=== PATIENT | male | born 1995 | race Caucasian/White ===

== ENCOUNTER 2022-02-10 18:39 | Emergency (ER) | payer OTHER ==
--- OUTSIDE RECORDS SUMMARY | 2022-02-10 18:41 | XMS REPORT | Continuity of Care Document ---
:1995 Author Organization [facility] t Address [address] [place] [address] Care Team Providers Name Role Phone Norah Silvestre Primary Care Physician BIANKA PACHECO Attending Clinician Unavailable BIANKA PACHECO Attending Clinician Unavailable Rivera Medina MD Attending Clinician FRANCY CARTER Attending Clinician Unavailable Doctor Unassigned, [place] Attending Clinician Unavailable Norah Silvestre Attending Clinician JEREMÍAS AMARAL Attending Clinician Unavailable YVONNE EVANGELISAT Attending Clinician Unavailable ISA REINOSO Attending Clinician Unavailable BIANKA PACHECO Admitting Clinician Unavailable Payers Payer Name Policy Type Policy Number Effective Date Expiration Date [facility] [id number] 2021 CHOICE MEDICAID 00:00:00 Problems Condition Condition Condition Status Onset Resolution Last Treating Co mments Source Name Details Category Date Date Treatment Clinician Date Flatulence Flatulence Disease Active U nivers , , 5-19 ity of [place] and gas , and gas 00 Medi justin pain pain Branch Bilious Bilious Disease Active Univers vomiting vomiting 5-19 ity of with with 00:00: [place] nausea nausea 00 Medical Branch Blood in Blood in Disease Active Unive rs stool stool 5-19 ity of 00:00: 00 Medical Branch Hematemesi Hematemesi Disease Active U nivers s with s with 5-19 ity of nausea nausea 00:00: [place] 00 Medical Branch Acute Acute Disease Active Univers intractabl intractabl 3-30 it y of e e 00:00: [place] tension-ty tension-ty 00 Me dical pe pe Branch headache headache Essential Essential Disease Active Uni vers hypertensi hypertensi 3-30 it y of on on 00:00: 00 Medical Branch Encounter Encounter Disease Active Uni vers to to 3-30 ity of establish establish 00:00: [facility] care 00 Medical Branch Diarrhea, Diarrhea, Disease Active Uni vers unspecifie unspecifie 3-30 it y of d type d type 00:00: [place] 00 Medical Branch Gastroesop Gastroesop Disease Active U nivers hageal hageal 3-30 ity of reflux reflux 00:00: [place] disease disease 00 Medical without without Branch esophagiti esophagiti s s Need for Need for Disease Active Unive rs hepatitis hepatitis 3-30 ity of C C 00:00: [place] screening screening 00 Medi justin test test Branch Subcutaneo Subcutaneo Disease Active U nivers us nodule us nodule 3-30 ity of of back of back 00:00: [place] 00 Medical Branch Nausea Nausea Disease Active Univers 3-30 ity of 00:00: [place] 00 Medical Branch Allergies, Adverse Reactions, Alerts Allergy Allergy Status Severity Reaction(s) Onset Inactive Treating Comm ents Source Name Type Date Date Clinician Penicill Propensi Active Hives Univer s in ty to 5-19 ity of adverse 00:00: [place] reaction 00 Medical s Branch PENICILL DRUG Active Hives Univers IN INGREDI 5-19 ity of 00:00: [place] 00 Medical Branch Amoxicil Propensi Active Rash Univer s [place] ty to 3-30 ity of adverse 00:00: [place] reaction 00 Medical s to Branch drug AMOXICIL DRUG Active Med Diarrhea Univer s [place] INGREDI 3-30 ity of 00:00: [place] 00 Medical Branch Social History Social Habit Start Date Stop Date Quantity Comments Source Exposure to 2021-10-05 2021-10-15 [facility] 09:32:00 [facility] (event) [place] Tobacco use and 2021-10-15 2021-10-15 Smokeless tobacco Un iversity of exposure 00:00:00 00:00:00 non-user [facility] Sex Ass[birth year] At [birth year] Universit y of 00:00:00 00:00:00 [facility] Smoking Status Start Date Stop Date Source Unknown [facility] Never smoked tobacco [facility] Medications Ordered Filled Start Stop Current Ordering Indication Dosage Frequency Signature Comments Components Source Medication Medication Date Date Medication? Clinician (SIG) Name Name PANTOPRAZOL 2021-05 Yes [id number] TAKE 1 Univers E 40 mg EC 0-03 TABLET BY ity of tablet 00:00: [facility] DAILY Medical Branch LISINOPRIL 2021-05 Yes [id number] TAKE 1 U nivers 10 mg 0-03 TABLET BY ity of tablet 00:00: [facility] DAILY Medical Branch PANTOPRAZOL Yes [id number] TAKE 1 Univers E 40 mg EC 6-27 TABLET BY ity of tablet 00:00: [facility] DAILY Medical Branch LISINOPRIL Yes [id number] TAKE 1 U nivers 10 mg 6-27 TABLET BY ity of tablet 00:00: [facility] DAILY Medical Branch PANTOPRAZOL 0 Yes [id number] TAKE 1 Univers E 40 mg EC 6-27 TABLET BY ity of tablet 00:00: [facility] DAILY Medical Branch LISINOPRIL 0 Yes [id number] TAKE 1 U nivers 10 mg 6-27 TABLET BY ity of tablet 00:00: [facility] DAILY Medical Branch PANTOPRAZOL 0 2021- No [id number] TAKE 1 Univers E 40 mg EC 6-27 10-03 TABLET BY ity of tablet 00:00: 00:00 [facility] 00 : DAILY Medical Branch LISINOPRIL 2021-0 2021- No [id number] TAKE 1 Univers 10 mg 6-27 10-03 TABLET BY ity of tablet 00:00: 00:00 [facility] 00 :00 DAILY Medical Branch ONDANSETRON 2022-0 Yes [id number] TAKE 1 Univers 4 mg tablet 6-03 TABLET BY ity of 00:00: MOUTH [place] 00 EVERY 8 Medical HOURS FOR Branch UP TO 10 DAYS NEEDED FOR NAUSEA OR VOMITING ONDANSETRON 2021-0 Yes [id number] TAKE 1 Univers 4 mg tablet 6-03 TABLET BY ity of 00:00: MOUTH [place] 00 EVERY 8 Medical HOURS FOR Branch UP TO 10 DAYS NEEDED FOR NAUSEA OR VOMITING ONDANSETRON 2021-0 Yes [id number] TAKE 1 Univers 4 mg tablet 6-03 TABLET BY ity of 00:00: MOUTH [place] 00 EVERY 8 Medical HOURS FOR Branch UP TO 10 DAYS NEEDED FOR NAUSEA OR VOMITING ONDANSETRON 2021-0 Yes [id number] TAKE 1 Univers 4 mg tablet 6-03 TABLET BY ity of 00:00: MOUTH [place] 00 EVERY 8 Medical HOURS FOR Branch UP TO 10 DAYS NEEDED FOR NAUSEA OR VOMITING ONDANSETRON 2021-0 Yes [id number] TAKE 1 Univers 4 mg tablet 6-03 TABLET BY ity of 00:00: MOUTH [place] 00 EVERY 8 Medical HOURS FOR Branch UP TO 10 DAYS NEEDED FOR NAUSEA OR VOMITING IBUPROFEN 2021-0 Yes [id number] TAKE 1 U nivers 600 mg 5-16 TABLET BY ity of tablet 00:00: MOUTH [place] 00 EVERY 6 Medical HOURS Branch NEEDED FOR TEMPERATUR E GREATER THAN 38.5 CELCIUS FOR UP TO 14 DAYS IBUPROFEN 2021-0 Yes [id number] TAKE 1 U nivers 600 mg 5-16 TABLET BY ity of tablet 00:00: MOUTH [place] 00 EVERY 6 Medical HOURS Branch NEEDED FOR TEMPERATUR E GREATER THAN 38.5 CELCIUS FOR UP TO 14 DAYS IBUPROFEN 2021-0 Yes [id number] TAKE 1 U nivers 600 mg 5-16 TABLET BY ity of tablet 00:00: MOUTH [place] 00 EVERY 6 Medical HOURS Branch NEEDED FOR TEMPERATUR E GREATER THAN 38.5 CELCIUS FOR UP TO 14 DAYS IBUPROFEN 2021-0 Yes [id number] TAKE 1 U nivers 600 mg 5-16 TABLET BY ity of tablet 00:00: MOUTH [place] 00 EVERY 6 Medical HOURS Branch NEEDED FOR TEMPERATUR E GREATER THAN 38.5 CELCIUS FOR UP TO 14 DAYS IBUPROFEN 2021-0 Yes [id number] TAKE 1 U nivers 600 mg 5-16 TABLET BY ity of tablet 00:00: MOUTH [place] 00 EVERY 6 Medical HOURS Branch NEEDED FOR TEMPERATUR E GREATER THAN 38.5 CELCIUS FOR UP TO 14 DAYS IBUPROFEN 2021-0 Yes [id number] TAKE 1 U nivers 600 mg 5-16 TABLET BY ity of tablet 00:00: MOUTH [place] 00 EVERY 6 Medical HOURS Branch NEEDED FOR TEMPERATUR E GREATER THAN 38.5 CELCIUS FOR UP TO 14 DAYS IBUPROFEN 2021-0 Yes [id number] TAKE 1 U nivers 600 mg 5-16 TABLET BY ity of tablet 00:00: MOUTH [place] 00 EVERY 6 Medical HOURS Branch NEEDED FOR TEMPERATUR E GREATER THAN 38.5 CELCIUS FOR UP TO 14 DAYS ONDANSETRON 0 Yes [id number] TAKE 1 Univers 4 mg tablet 5-04 TABLET BY ity of 00:00: MOUTH [place] 00 EVERY 8 Medical HOURS FOR Branch UP TO 10 DAYS NEEDED FOR NAUSEA OR VOMITING ONDANSETRON 0 Yes [id number] TAKE 1 Univers 4 mg tablet 5-04 TABLET BY ity of 00:00: MOUTH [place] 00 EVERY 8 Medical HOURS FOR Branch UP TO 10 DAYS NEEDED FOR NAUSEA OR VOMITING ONDANSETRON 0 2021- No [id number] TAKE 1 Univers 4 mg tablet 5-04 06-03 TABLET BY it y of 00:00: 00:00 MOUTH [place] 00 :00 EVERY 8 Medical HOURS FOR Branch UP TO 10 DAYS NEEDED FOR NAUSEA OR VOMITING pantoprazol 2021-2021- No [id number] 40mg Take 1 Univers e 40 mg EC 07-28- tablet by ity of tablet 00:00: 04:59 mouth [place] 00 :00 daily for Medical 90 days. Branch lisinopriL 2021- No [id number] 10mg Take 1 Univers 10 mg 3-28 10-29 tablet by ity of tablet 00:00: 04:59 mouth [place] 00 :00 daily for Medical 90 days. Branch pantoprazol 2021-2021- No [id number] 40mg Take 1 Univers e 40 mg EC 3-28 10- tablet by ity of tablet 00:00: 04:59 mouth [place] 00 :00 daily for Medical 90 days. Branch lisinopriL 2021-2021- No [id number] 10mg Take 1 Univers 10 mg 3-30 -29 tablet by ity of tablet 00:00: 04:59 mouth [place] 00 :00 daily for Medical 90 days. Branch pantoprazol 2021- No [id number] 40mg Take 1 Univers e 40 mg EC 07-28 tablet by ity of tablet 00:00: 04:59 mouth [place] 00 :00 daily for Medical 90 days. Branch lisinopriL 2021- No [id number] 10mg Take 1 Univers 10 mg 07-28 tablet by ity of tablet 00:00: 04:59 mouth [place] 00 :00 daily for Medical 90 days. Branch pantoprazol 2021- No [id number] 40mg Take 1 Univers e 40 mg EC 07-28 tablet by ity of tablet 00:00: 04:59 mouth [place] 00 :00 daily for Medical 90 days. Branch lisinopriL 2021- No [id number] 10mg Take 1 Univers 10 mg 07-28 tablet by ity of tablet 00:00: 04:59 mouth [place] 00 :00 daily for Medical 90 days. Branch pantoprazol 2021- No [id number] 40mg Take 1 Univers e 40 mg EC 07-28 tablet by ity of tablet 00:00: 00:00 mouth [place] 00 :00 daily for Medical 90 days. Branch lisinopriL 2021- No [id number] 10mg Take 1 Univers 10 mg 07-28 tablet by ity of tablet 00:00: 00:00 mouth [place] 00 :00 daily for Medical 90 days. Branch Vital Signs Vital Name Observation Time Observation Value Comments Source BMI 2021-09-16 15:24:00 25.64 kg/m2 [facility] Oxygen saturation in 2021-09-16 15:24:00 97 /min [facility] Arterial blood by [facility] [place] Pulse oximetry Branch Systolic blood 2021-09-16 15:24:00 139 mm[Hg] Univer sity of pressure [facility] Diastolic blood 2021-09-16 15:24:00 82 mm[Hg] [facility] Heart rate 2021-09-16 15:24:00 102 /min [facility] Body temperature 2021-09-16 15:24:00 36.39 Tiera [facility] Respiratory rate 2021-09-16 15:24:00 20 /min [facility] Body height 2021-09-16 15:24:00 170.2 cm [facility] Body weight 2021-09-16 15:24:00 74.254 kg [facility] Procedures Procedure Date / Time Performed Performing Clinician Sourc e EXTERNAL PROVIDER 2021-11-12 05:01:00 Doctor Zenon, No [facility] RECORDS Name [facility] Encounters Start End Encounter Admission Attending Care Care Encounter Source Date/Time Date/Time Type Type Clinicians Facility Department ID 2021-09-30 Outpatient R BIANKA PACHECO [facility] [id number] Univers 12:05:01 BIANKA PACHECO i [facility] 2022-01-31 2022-01-31 RefAMMON Ovalle [id number] Univers 00:00:00 00:00:00 Rivera PEDIATRIC [id number] [id number] [id number] [facility] PRIMARY [facility] CARE [facility]INIC 2021-11-30 2021-11-30 Outpatient FRANCY MUNOZ [facility] [id number] Univers 10:00:00 10:00:00 [id number] ity of [facility] 2021-11-30 2021-11-30 Outpatient FRANCY MUNOZ [facility] [id number] Univers 10:00:00 10:00:00 ity of [facility] 2021-11-12 2021-11-12 Orders Doctor MOSS [id number] [id number] Univers 00:00:00 00:00:00 Only Unassigned, JORDI [id number] ity of [place] [facility] [id number] Manuel as [id number] [place] [address] Branch 2021-10-23 2021-10-23 RefAMMON Oconnor [id number] [id number] Univers 00:00:00 00:00:00 Norah PEDIATRIC [id number] [id number] [id number] [address] 2021-10-19 2021-10-19 AMMON Daugherty 1.2.840.114 [id number] Univers 00:00:00 00:00:00 Norah PEDIATRIC [id number] [id number] [id number] [address] 2021-10-16 2021-10-16 Outpatient R [facility] [id number] Univers 11:45:00 11:45:00 ity of [facility] 2021-09-30 2021-09-30 AMMON Daugherty [id number] [id number] Univers 00:00:00 00:00:00 Norah PEDIATRIC [id number] [id number] [id number] [address] 2021-09-24 2021-09-24 AMMON Daugherty 1.2.840.114 [id number] Univers 00:00:00 00:00:00 Norah PEDIATRIC [id number] [id number] [id number] [address] 2021 2021 Outpatient R [facility] [id number] Univers 08:45:00 08:45:00 ity [facility] 2021-09-16 2021-09-16 Office Raquel WVDEREJE 1.2.840.114 [id number] Univers 10:00:00 11:36:37 Visit Uribe MARCUS [id number] it[id number] [id number] Ok emily RAYMUNDO [address] [place] [address] 2021-09-16 2021-09-16 Outpatient R BIANKA PACHECO [facility] [id number] Univers 10:00:00 11:36:37 [facility]-04[facility]19 2021-04-20 Emergency E IHEME, JEREMÍAS MHBL MHBL [id number] MHBL 23:01:00 05:18:00 2020-06-02 2020-06-02 Emergency E TONJA, MHBL MED [id number] MHBL 08:54:00 12:30:00 [facility] 2020-01-24 2020-01-25 Emergency E ISA REINOSO MHBL MHBL [id number] MHBL 21:20:00 01:02:00 2019-04-12 2019-04-12 Emergency E MHBL MHBL [id number] MHBL 09:48:00 09:48:00 2019-02-28 2019-02-28 Emergency E MHBL MHBL [id number] MHBL 18:02:00 18:02:00 Results This patient has no known results.
[2022-02-10] MEDS ORDERED: dexAMETHasone 10 MG/ML VIAL ONE (19:58)
[2022-02-10] MEDS ORDERED: KETOROLAC 30 MG/ML INJ ONE (19:59)
--- NOTE | 2022-02-10 20:25 | RAD REPORT ---
EXAM DESCRIPTION: CT - Soft Tissue Neck W/Contr CLINICAL HISTORY: difficulty swallowing Neck pain, dysphagia COMPARISON: No comparisons TECHNIQUE All CT scans are performed using dose optimization technique as appropriate and may includ e automated exposure control or mA/KV adjustment according to patient size. FINDINGS: Nasopharyngeal tissues are normal in appearance. Fossa Rosenmller are normal. Parapharyngeal fat triangles are symmetric. Tongue base structures are normal. Epiglottis and aryepiglottic folds are normal. Piriform sinuses are well aerated. The vocal cords are normal in appearance. Salivary glands are normal in appearance. Upper lung nelson are clear. Included intracranial contents are unremarkable. IMPRESSION: No acute abnormality is detected.
--- NOTE | 2022-02-10 21:56 | ER ---
Nurse's Notes [facility] [place] [facility] Name: Silvio Langley Age: 26 yrs Sex: Male : 1995 Arrival Date: 02/10/2022 Time: 18:57 Bed 12 Private MD: Diagnosis: Acute pharyngitis, unspecified Presentation: 02/10 19:21 Chief complaint: Patient states: Doesn't want to speak; speaking for patient jh5 states he coughed up flesh and now throat hurts and thinks he had a cyst or abscess. Coronavirus screen: Vaccine status: Patient reports being unvaccinated. Client denies travel out of the [place] in the last 14 days. Ebola Screen: Patient negative for fever greater than or equal to 101.5 degrees Fahrenheit, and additional compatible Ebola Virus Disease symptoms Patient denies exposure to infectious person. Patient denies travel to an Ebola-affected area in the 21 days before illness onset. Initial Sepsis Screen: Does the patient meet any 2 criteria? No. Patient's initial sepsis screen is negative. Does the patient have a suspected source of infection? No. Patient's initial sepsis screen is negative. Risk Assessment: Do you want to hurt yourself or someone else? Patient reports no desire to harm self or others. Onset of symptoms was January 2022. 19:21 Method Of Arrival: Ambulatory [facility] 19:21 Acuity: SHEREE 4 jh5 Triage Assessment: 19:25 General: Appears in no apparent distress. uncomfortable, Behavior is calm, cooperative, [facility] appropriate for age. Pain: Complains of pain in throat. Cardiovascular: No deficits noted. Historical: - Allergies: 19:25 No Known Allergies; [facility] - Home Meds: 19:25 None [Active]; [facility] - PMHx: 19:25 None; [facility] - Immunization history:: Adult Immunizations up to date. - Social history:: Smoking status: Patient reports the use of cigarette tobacco products, smokes two packs cigarettes per day. Screenin:55 Abuse screen: Denies threats or abuse. Nutritional screening: No deficits noted. em6 Tuberculosis screening: No symptoms or risk factors identified. Fall Risk IV access (20 points). Total Silva Fall Scale indicates No Risk (0-24 pts). Assessment: 19:55 General: Appears uncomfortable, Behavior is cooperative. Pain: Complains of pain in em6 throat Pain does not radiate. Pain began 2-3 days ago. Neuro: Level of Consciousness is awake, alert, obeys commands, Oriented to person, place, time, situation. Cardiovascular: Patient's skin is warm and dry. Respiratory: Airway is patent Respiratory effort is even, unlabored, Respiratory pattern is regular, symmetrical. GI: No signs and/or symptoms were reported involving the gastrointestinal system. : No signs and/or symptoms were reported regarding the genitourinary system. EENT: red oral mucosa noted and swollen lymph nodes . Derm: No signs and/or symptoms reported regarding the dermatologic system. Musculoskeletal: Circulation, motion, and sensation intact. Range of motion: intact in all extremities. 20:55 Reassessment: No changes from previously documented assessment. Patient and/or family em6 updated on plan of care and expected duration. Pain level reassessed. Patient is alert, oriented x 3, equal unlabored respirations, skin warm/dry/pink. 21:58 Reassessment: No changes from previously documented assessment. Patient and/or family em6 updated on plan of care and expected duration. Pain level reassessed. Patient is alert, oriented x 3, equal unlabored respirations, skin warm/dry/pink. Vital Signs: 19:21 Resp 20; Temp 98.8; Pulse Ox 100% ; Weight 65.77 kg; Height 5 ft. 7 in. (170.18 cm); 5 Pain 8/10; 19:27 BP 120 / 83; Pulse 103; Resp 18; Temp 98.6; Pulse Ox 100% ; 5 21:48 BP 121 / 60; Pulse 91; Resp 18; Pulse Ox 100% on R/A; em6 19:21 Body Mass Index 22.71 (65.77 kg, 170.18 cm) 5 ED Course: 18:57 Patient arrived in ED. mr 19:07 Chris Estrada PA is PHCP. m 19:07 Maurice Scott MD is Attending Physician. [facility] 19:25 Triage completed. 5 19:27 Arm band placed on right wrist. 5 19:40 Leticia Greene, RN is Primary Nurse. em6 19:55 Inserted saline lock: 20 gauge in left antecubital area, using aseptic technique. Blood em6 collected. 20:29 SARS-COV-2 RT PCR (Document "Date of Onset" if Symptomatic) Sent. em6 20:29 Strep Sent. em6 20:29 Influenza Screen (a \\T\\ B) Sent. em6 20:33 Bed in low position. Call light in reach. Pulse ox on. NIBP on. em6 20:33 Patient maintains SpO2 saturation greater than 95% on room air. em6 21:55 Marguerite Rouse MD is Referral Physician. jmm 21:55 Filippo Granados MD is Referral Physician. jmm 21:55 Rayray Chen MD is Referral Physician. [facility] 22:38 No provider procedures requiring assistance completed. IV discontinued, intact, em6 bleeding controlled, No redness/swelling at site. Pressure dressing applied. Administered Medications: 19:55 Drug: Decadron - Dexamethasone 10 mg Route: IVP; Site: left antecubital; em6 20:55 Follow up: Response: No adverse reaction em6 19:58 Drug: Ketorolac 30 mg Route: IVP; Site: left antecubital; em6 20:55 Follow up: Response: No adverse reaction em6 Medication: 22:38 VIS not applicable for this client. em6 Outcome: 21:55 Discharge ordered by MD. [facility] 22:38 Discharged to home ambulatory. em6 22:38 Condition: stable 22:38 Discharge instructions given to patient, Instructed on discharge instructions, follow up and referral plans. medication usage, Demonstrated understanding of instructions, follow-up care, medications, Prescriptions given X 1. 22:39 Patient left the ED. em6 Signatures: Chris Estrada PA PA jmm Rivera, Mary mr Rees, Jessica RN RN jh5 Leticia Greene RN RN em6 Corrections: (The following items were deleted from the chart) 21:42 21:42 Response: No adverse reaction em6 em6 21:58 21:48 BP 125 / 80; Pulse 99bpm; Resp 18bpm; Pulse Ox 100% RA; em6 em6
--- NOTE | 2022-02-10 21:56 | EDPHYS ---
Physician Documentation [facility] Name: Silvio Langley Age: 26 yrs Sex: Male : 1995 Arrival Date: 02/10/2022 Time: 18:57 Bed 12 Private MD: ED Physician Maurice Scott HPI: 02/10 20:25 This 26 yrs old Male presents to ER via Ambulatory with complaints of Cough, Sore jmm Throat. 20:25 Onset: The symptoms/episode began/occurred gradually, 3 day(s) ago. Associated signs jmm and symptoms: Pertinent positives: sore throat. Modifying factors: The patient symptoms are alleviated by nothing, the patient symptoms are aggravated by nothing. The patient or guardian reports cough. And admits to productive cough and is concerned that he may have a mass in his throat. Historical: - Allergies: 19:25 No Known Allergies; [facility] - Home Meds: 19:25 None [Active]; [facility] - PMHx: 19:25 None; [facility] - Immunization history:: Adult Immunizations up to date. - Social history:: Smoking status: Patient reports the use of cigarette tobacco products, smokes two packs cigarettes per day. ROS: 20:25 Constitutional: Positive for body aches, fever. jmm 20:25 ENT: Positive for sore throat. 20:25 Respiratory: Positive for cough. 20:25 All other systems are negative. Exam: 20:25 Constitutional: This is a well developed, well nourished patient who is awake, alert, jmm and in no acute distress. Head/Face: atraumatic. Eyes: EOMI, no conjunctival erythema appreciated 20:25 Neck: Trachea midline, Supple Chest/axilla: Normal chest wall appearance and motion. Cardiovascular: Regular rate and rhythm. No edema appreciated Respiratory: Normal respirations, no respiratory distress appreciated Abdomen/GI: Non distended Back: Normal ROM Skin: General appearance color normal MS/ Extremity: Moves all extremities, no obvious deformities appreciated, no edema noted to the lower extremities Neuro: Awake and alert Psych: Behavior is normal, Mood is normal, Patient is cooperative and pleasant 20:25 ENT: Posterior pharynx: Uvula: normal, erythema, that is moderate. Vital Signs: 19:21 Resp 20; Temp 98.8; Pulse Ox 100% ; Weight 65.77 kg; Height 5 ft. 7 in. (170.18 cm); [facility] Pain 8/10; 19:27 BP 120 / 83; Pulse 103; Resp 18; Temp 98.6; Pulse Ox 100% ; 5 21:48 BP 121 / 60; Pulse 91; Resp 18; Pulse Ox 100% on R/A; em6 19:21 Body Mass Index 22.71 (65.77 kg, 170.18 cm) [facility] MDM: 19:34 Patient medically screened. [facility] 21:08 Data reviewed: vital signs, nurses notes. Counseling: I had a detailed discussion with dung the patient and/or guardian regarding: the historical points, exam findings, and any diagnostic results supporting the discharge/admit diagnosis, radiology results, to return to the emergency department if symptoms worsen or persist or if there are any questions or concerns that arise at home. 02/10 19:30 Order name: Influenza Screen (a \\T\\ B) [facility] 02/10 19:30 Order name: Strep [facility] 02/10 19:29 Order name: CT Soft Tissue Neck W/contr [facility] 02/10 19:30 Order name: SARS-COV-2 RT PCR (Document "Date of Onset" if Symptomatic); Complete Time: [facility] 21:44 02/10 20:27 Order name: CT; Complete Time: 20:28 [facility] 02/10 19:29 Order name: Saline Lock; Complete Time: 20:29 [facility] Administered Medications: 19:55 Drug: Decadron - Dexamethasone 10 mg Route: IVP; Site: left antecubital; em6 20:55 Follow up: Response: No adverse reaction em6 19:58 Drug: Ketorolac 30 mg Route: IVP; Site: left antecubital; em6 20:55 Follow up: Response: No adverse reaction em6 Disposition Summary: 02/10/22 21:55 Discharge Ordered Location: Home [facility] Condition: Stable [facility] Diagnosis - Acute pharyngitis, unspecified [facility] Followup: dung - With: - When: 2 - 3 days - Reason: Recheck today's complaints, Continuance of care, Re-evaluation by your physician Followup: dung - With: - When: 2 - 3 days - Reason: Recheck today's complaints, Continuance of care, Re-evaluation by your physician Followup: dung - With: - When: 2 - 3 days - Reason: Recheck today's complaints, Continuance of care, Re-evaluation by your physician Discharge Instructions: - Discharge Summary Sheet dung - Pharyngitis dung Forms: - Medication Reconciliation Form dung - Thank You Letter dung - Antibiotic Education dung - Prescription Opioid Use dung Prescriptions: - cefdinir 300 mg Oral capsule - take 1 capsule by ORAL route every 12 hours for 10 days; 20 capsule; Refills: [facility] 0, Product Selection Permitted Signatures: Dispatcher [employer] EDChris Craven PA PA jmm Rees, Jessica, RN RN [id number] Leticia Greene RN RN em6
[2022-02-11 00:21] VITALS: O2SAT 100
[2022-02-11 00:23] VITALS: TEMP 98.6
[2022-02-11 00:24] VITALS: BP 121/60
== END 2022-02-10 22:39 | disposition home or self-care (01) ==
LOC: ER 18:39
DX: J02.9 Acute pharyngitis, unspecified (principal); F17.210 Nicotine dependence, cigarettes, uncomplicated; Z20.822 Contact with and (suspected) exposure to COVID-19
CPT/HCPCS: 87070; 87081; 87804 ×2; 70491; 96375; 96374; 99284; U0003; Q9967; J1100